=== PATIENT | female | born 2000 | race Caucasian/White ===

== ENCOUNTER 2021-03-22 17:59 | Emergency (ER) | payer OTHER ==
[~2021-03-22] VITALS: Ht 157.5 cm; Wt 59.4 kg
[2021-03-22 18:05] VITALS: BP 111/50
--- NOTE | 2021-03-22 18:27 | NUR ---
Ambulatory. Gait even/steady. In No obvious distress.
--- NOTE | 2021-03-22 18:32 | NUR ---
AT BEDSIDE FOR EVAL.
--- NOTE | 2021-03-22 19:04 | NUR ---
Patient discharged to home in stable condition. Written and verbal after care instructions given. Patient verbalizes understanding of instruction.
== END 2021-03-22 19:05 | disposition home or self-care (01) ==
LOC: ER 18:05
DX: O9A.211 Injury, poisoning and certain other consequences of external causes complicating pregnancy, first trimester (principal); M54.50 Low back pain, unspecified; R20.2 Paresthesia of skin; Z3A.09 9 weeks gestation of pregnancy; V43.62XA Car passenger injured in collision with other type car in traffic accident, initial encounter; Y93.89 Activity, other specified; Y92.89 Other specified places as the place of occurrence of the external cause; Y99.8 Other external cause status